=== PATIENT | male | born 1990 | race Caucasian/White ===

== ENCOUNTER 2019-11-05 16:32 | Emergency (ER) | payer SELFPAY ==
[2019-11-05] MEDS ORDERED: Clindamycin CAP* 150 MG PO ONE (17:32)
--- NOTE | 2019-11-05 17:39 | UC ---
Dental HPI - HPI Summary HPI Summary: Patient has had recent dental trauma to the left lower jaw, He has 2 fractured teeth on that side that he is waiting to have removed. has a developing large abscess. DOes have a dentist, but has not made an appointment. denies fever, he is able to swollow without difficulty. no pain in neck or ear. - History of Current Complaint Stated Complaint: DENTAL Time Seen by Provider: 11/05/19 17:29 Hx Obtained From: Patient Onset/Duration: Sudden Onset, Lasting Days Severity: Moderate Related History: Previous Dental Care on Same Tooth, Swelling PMH/Surg Hx/FS Hx/Imm Hx Previously Healthy: Yes - Family History Known Family History: Positive: Hypertension Review of Systems All Other Systems Reviewed And Are Negative: Yes ENT: Positive: Dental Pain Physical Exam Triage Information Reviewed: Yes Appearance: Well-Appearing, Well-Nourished, Pain Distress Vital Signs Reviewed: Yes Eye Exam: Normal ENT: Positive: Pharynx normal, TMs normal Dental: Positive: Gross Decay/Caries @, Dental Fracture @ - on multiple teeth, Abscess @ - left lower jaw, Cervical Lymphadenopathy - left side Neck: Positive: Enlarged Nodes @ - along the left mandible and cervical area Respiratory Exam: Normal Respiratory: Positive: Chest non-tender, Lungs clear, Normal breath sounds Cardiovascular Exam: Normal Cardiovascular: Positive: RRR, No Murmur, Pulses Normal Abdominal Exam: Normal Abdomen Description: Positive: Nontender, No Organomegaly, Soft Musculoskeletal Exam: Normal Neurological Exam: Normal Psychological Exam: Normal Skin Exam: Normal Dental Complaint Course/Dx - Course Course Of Treatment: hx obtained, exam performed ,meds reviewed, treated for abscess and advised to call the oral surgeon in the morning - Differential Dx/Diagnosis Provider Diagnosis: Dental abscess, Lymphadenopathy Discharge ED - Sign-Out/Discharge Documenting (check all that apply): Patient Departure All imaging exams completed and their final reports reviewed: No Studies - Discharge Plan Condition: Stable Disposition: HOME Prescriptions: Clindamycin Cap(NF) [Clindamycin Cap 300 mg Cap(NF)] 300 mg PO TID #21 cap Patient Education Materials: Dental Abscess (ED) Referrals: No Primary Care Phys,NOPCP [Primary Care Provider] - Alec Bazan DMD [Doctor of Dental Medicine] - Additional Instructions: 1. take the medication as prescribed. 2. Warm compresses to the left side of face 3. Ibuprofen and tylenol for pain and swelling 4. Call tomorrow to get an appointment with the dentist. 5. If you develop a fever, difficulty swollowing, increase neck or jaw pain, follow up in the ER. - Billing Disposition and Condition Condition: STABLE Disposition: Home - Attestation Statements Provider Attestation: Per institutional requirements, I have reviewed the chart, however, I was not consulted specifically or made aware of this patient by the midlevel provider. I did not personally evaluate, interact with , or disposition this patient.
[2019-11-05 17:40] VITALS: BP 127/74
== END 2019-11-05 17:44 | disposition home or self-care (01) ==
LOC: UCCORT 16:32
DX: K04.7 Periapical abscess without sinus (principal); R59.1 Generalized enlarged lymph nodes
CPT/HCPCS: 99212; A9270-GY; G0463